=== PATIENT | male | born 1940 | race Caucasian/White ===

== ENCOUNTER → 2018-02-24 12:28 | Outpatient (CLI) | payer MEDICARE, BC, SELFPAY ==
--- NOTE | 2018-02-24 12:31 | DI.ECHO.S_ITS ---
[facility] +---------+ : : [address] : [address] : : : : [id number] : : : : Phone: [phone]+ Echocardiogram Report + + :Name: LOUIS MANCILLA Study Date: 02/24/2018 Height: 69 in : :[facility] Weight: 207 lb: : Gender: Male BSA: 2.1 m2 : :: 1940 Age: 77 yrs : :Reason For Study: MURMUR : : Performed By: Lizbeth Shen : :Referring: BEATRIZ SEWELL : + + Interpretation Summary The ejection fraction is estimated to be 55-60%. The left atrium is severely dilated. There is mild aortic valve sclerosis. Procedure: A two-dimensional transthoracic echocardiogram with color flow and Doppler was performed. The study quality was technically adequate. There is no prior echocardiogram noted for this patient. The heart rate ranged between 64-70 bpm during the study. Left Ventricle: The left ventricle is normal in size, wall thickness, and systolic function without any focal wall motion abnormalities. The ejection fraction is estimated to be 55-60%. Left ventricular wall motion is normal. Right Ventricle: The right ventricle is normal in size and function. Atria: The left atrium is severely dilated. Right atrial size is normal. There is no Doppler evidence for an interatrial shunt. Mitral Valve: There is mild mitral annular calcification. The mitral valve leaflets appear thickened, but open well. There is trace mitral regurgitation. Aortic Valve: The aortic valve is trileaflet. The aortic valve is mildly calcified. There is mild aortic valve sclerosis. There is no hemodynamically significant valvular aortic stenosis. There is trace aortic regurgitation. Tricuspid Valve: The tricuspid valve is normal in structure and function. There is a trace or physiologic amount of tricuspid regurgitation. Pulmonary artery pressures cannot be estimated because of the lack of a measurable TR jet velocity. Pulmonic Valve: The pulmonic valve is normal in structure and function. There is a trace or physiologic amount of pulmonic regurgitation. Great Vessels: The aortic root is normal size. The ascending aorta is normal in size. The aortic arch could not be visualized. The pulmonary artery is normal size. The IVC is of normal diameter and collapses greater than 50% with a sniff. This suggests a low right atrial pressure of 3 mm Hg. Pericardium/ Pleura There is no pericardial effusion. There is no pleural effusion. MMode/2D Measurements & Calculations LVIDd: 4.9 cm LVOT diam: 2.1 cm LVIDs: 2.9 cm Ao root diam: 3.1 cm FS: 40.7 % asc Aorta Diam: 3.2 cm IVSd: 0.92 cm LVPWd: 0.99 cm LV rodas. diameter/BSA (cm/m^2): 2.4 LV sys. diameter/BSA (cm/m^2): 1.4 LA A2 area: 28.7 cm2 RA long axis: 5.5 cm LA A4 area: 29.6 cm2 RA area: 14.4 cm2 LA length (vol): 6.4 cm RA vol: 32.0 ml LA vol: 111.7 ml RA : 15.2 ml/m2 LA vol index: 53.3 ml/m2 IVC diam: 1.6 cm RVD1 (basal): 2.9 cm Doppler Measurements & Calculations Ao V2 max: 153.1 cm/sec LVOT Max Mauricio: 119.8 cm/sec Ao V2 mean: 101.5 cm/sec LV V1 max P.7 mmHg Ao max P.4 mmHg LV V1 VTI: 29.1 cm Ao mean P.6 mmHg DONY(I,D): 3.2 cm2 Ao V2 VTI: 31.5 cm DONY(V,D): 2.7 cm2 sev ratio: 0.92 DONY indexed to BSA (cm^2/m^2): 1.5 MV E max mauricio: 103.7 cm/sec MV A max mauricio: 117.3 cm/sec MV E/A: 0.88 Med Peak E' Mauricio: 8.1 cm/sec E/E' med: 12.7 Lat Peak E' Mauricio: 9.7 cm/sec E/E' lat: 10.7 E/e' average: 11.7 MV dec time: 0.25 sec Reading Physician:02:46 PM
--- NOTE | 2018-02-24 12:31 | DI.RAD.S_ITS ---
PROCEDURE: XR HIP W PEL IF DONE LT 2V INDICATIONS: pain TECHNIQUE: AP pelvis with lateral view(s) of the left hip(s). COMPARISON: [facility], , PELVIS W UNILATERAL HIP LEFT, 02/06/2014, 12:54. [facility], HIP 2V RIGHT, 01/29/2011, 11:56. FINDINGS: Bones: There is a nondisplaced lucency along be superior lateral aspect of the left pubic ramus. Pelvic ring appears intact. No suspicious bony lesions. Moderate bilateral degenerative hip joint space narrowing. Bilateral periarticular osteophytes are present. No erosions are identified. Degenerative changes are present in the lower lumbar spine. Soft tissues: The visualized bowel gas pattern is normal. No suspicious soft tissue calcifications. IMPRESSION: This is a nondisplaced left pubic ramus lucency as above. This is highly suspicious for fracture. Correlation to pain and further evaluation with CT is recommended. Extension to the acetabulum cannot be excluded. Dictated by: Bárbara Gupta M.D. on 02/24/2018 at 12:53 Approved by: Bárbara Gupta M.D. on 02/24/2018 at 12:58
== END ==
PROVIDERS: PCP Family Medicine; Visit Provider Family Medicine
DX: I35.8 Other nonrheumatic aortic valve disorders (principal); M25.552 Pain in left hip; R01.1 Cardiac murmur, unspecified; R60.0 Localized edema
CPT/HCPCS: 73502; 93306

== ENCOUNTER → 2018-02-28 13:09 | Outpatient (CLI) | payer MEDICARE, BC, SELFPAY ==
[2018-02-28 14:09] LABS: BUN Creatinine Ratio 21.4 (6-22); Blood Urea Nitrogen 15 mg/dL (9-20); Estimated Glomerular Filt Rate > 60.0 mL/min (>60)
== END ==
PROVIDERS: PCP Family Medicine; Visit Provider Family Medicine
DX: Z01.812 Encounter for preprocedural laboratory examination (principal)
CPT/HCPCS: 36415; 82565; 84520

== ENCOUNTER → 2018-03-01 08:28 | Outpatient (CLI) | payer MEDICARE, BC, SELFPAY ==
--- NOTE | 2018-03-01 08:54 | DI.CT.S_ITS ---
PROCEDURE: CT PELVIS W CON INDICATIONS: X-ray suspicious for hip fracture TECHNIQUE: After the administration of oral contrast and intravenous contrast, 5 mm thick sections acquired from the iliac crests to the symphysis. 5 mm thick coronal and sagittal reformats were acquired. For radiation dose reduction, the following was used: automated exposure control, adjustment of mA and/or kV according to patient size. COMPARISON: [facility], CT, ABDOMEN/PELVIS WITH CONTRAST, 02/21/2014, 10:24. [facility], CR, XR HIP W PEL IF DONE LT 2V, 02/24/2018, 12:18. FINDINGS: Image quality: Excellent. Peritoneum and bowel: Contrast enhanced bowel loops demonstrate normal wall thickness and caliber. No free fluid or air. Genitourinary: There is a questionable hypodense lesion within the midpole the right kidney which is incompletely characterized on this limited view a cyst is visualized in this region on the comparison CT dated 02/21/14. Dense atheromatous calcifications are present throughout the abdominal aorta and iliac arteries. Bladder wall thickness is normal. Nodes and vessels: No iliac, pelvic, or inguinal adenopathy. Iliac vessels demonstrate normal size and enhancement. Bones: There is a minimally displaced fracture through the left anterior acetabulum (series 2, images 49-57). The femoral head remains articulated with the acetabulum. A minimally displaced fracture is also present to the left inferior obturator ring (series 2, images 70-76). No other fracture or dislocation. The tract of a now removed left femoral nail and bony remodeling of the proximal left femur is redemonstrated. Severe degenerative changes present within the visualized portions of the lumbar spine. Miscellaneous: No inguinal hernias. IMPRESSION: 1. Minimally displaced left acetabular and inferior obturator ring fracture as described above. 2. Probable right renal cyst which is incompletely characterized. 3. Aortic atherosclerosis. Dictated by: Miriam Villavicencio M.D. on 03/01/2018 at 10:50 Approved by: Miriam Villavicencio M.D. on 03/01/2018 at 10:58
== END ==
PROVIDERS: PCP Family Medicine; Visit Provider Family Medicine
DX: S32.492A Other specified fracture of left acetabulum, initial encounter for closed fracture (principal); I70.0 Atherosclerosis of aorta
CPT/HCPCS: 72193; Q9967

== ENCOUNTER 2018-04-10 15:32 | Emergency (ER) | payer MEDICARE, BC, SELFPAY ==
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
[2018-04-10 15:44] VITALS: BP 156/79; PULSE 91; RESP 18; TEMP 36.8; O2SAT 97
--- NOTE | 2018-04-10 15:47 | DI.US.S_ITS ---
PROCEDURE: US PERIPH VENOUS LOW EXTREM LT INDICATIONS: LEFT CALF PAIN TECHNIQUE: Real-time imaging, as well as color and pulse Doppler interrogation, were performed of the lower extremity deep veins from the inguinal ligament to the popliteal fossa. COMPARISON: None. FINDINGS: The deep veins are normally compressible, and free of intraluminal thrombus. Color and pulse Doppler demonstrate normal phasic intraluminal flow. There is normal augmentation response to distal compression maneuver. IMPRESSION: No ultrasound evidence of left lower extremity deep venous thrombosis. Dictated by: Ed Victoria M.D. on 04/10/2018 at 18:39 Approved by: Ed Victoria M.D. on 04/10/2018 at 18:40
[2018-04-10] MEDS: CYCLOBENZAPRINE 10 MG PREPACK 1 BOTTLE MISC (17:32)
[2018-04-10 17:40] VITALS: BP 150/77; PULSE 72; RESP 15; O2SAT 97
== END 2018-04-10 17:41 | disposition home or self-care (01) ==
PROVIDERS: Emergency Provider Nurse Practitioner Family; PCP Family Medicine
DX: M79.662 Pain in left lower leg (principal)
CPT/HCPCS: 93971; 99282; 99284

== ENCOUNTER → 2018-04-12 10:09 | Outpatient (CLI) | payer MEDICARE, BC, SELFPAY ==
--- NOTE | 2018-04-12 | DI.CT.S_ITS ---
PROCEDURE: CT PEL WO CON INDICATIONS: Nondisplaced fracture of anterior wall of left acetabulum TECHNIQUE: Noncontrast 3 mm axial sections acquired through the bony pelvis, with coronal and sagittal reformatting. COMPARISON: [facility], CR, L-SPINE 2-3 VIEWS, 02/15/2014, 9:26. [facility], CT, CT PELVIS W CON, 03/01/2018, 8:51. [facility], CR, XR PELVIS WITH LATERAL HIP LEFT, 03/24/2018, 15:36. FINDINGS: Image quality: Satisfactory. Bones: There are healing fractures with minimal displacement involving the left anterior acetabulum and left inferior pubic ramus, demonstrating interval callus formation. An insufficiency fracture is suspected in the left sacral ala. Degenerative disc disease and facet arthropathy are present in the lower lumbar spine. There is mild to moderate hip and sacroiliac joint degeneration bilaterally. Soft tissues: No soft tissue mass or hematoma. Scattered colonic diverticula are noted in descending colon. No active diverticulitis. IMPRESSION: 1. Healing left anterior acetabular and left inferior pubic ramal fractures. 2. Suspect an insufficiency fracture of the left sacral ala. Dictated by: Keny Reddy M.D. on 04/12/2018 at 11:38 Approved by: Keny Reddy M.D. on 04/12/2018 at 11:49
== END ==
PROVIDERS: PCP Family Medicine; Visit Provider Orthopaedic Surgery
DX: S32.415A Nondisplaced fracture of anterior wall of left acetabulum, initial encounter for closed fracture (principal); M16.0 Bilateral primary osteoarthritis of hip; M51.37 Other intervertebral disc degeneration, lumbosacral region; M47.818 Spondylosis without myelopathy or radiculopathy, sacral and sacrococcygeal region; M47.817 Spondylosis without myelopathy or radiculopathy, lumbosacral region; K57.30 Diverticulosis of large intestine without perforation or abscess without bleeding
CPT/HCPCS: 72192

== ENCOUNTER → 2018-04-26 07:31 | Outpatient (CLI) | payer MEDICARE, BC, SELFPAY ==
[2018-04-26 08:23] LABS: Add Manual Diff / Slide Review NO; Eosinophils Percent Auto 1.6 % (2-4); Hematocrit 38.6 % (41-53); Hemoglobin 12.8 g/dL (13.5-17.5); Lymphocytes Percent Auto 35.2 % (25-40); Mean Corpuscular HGB Conc 33.1 % (30-36); Mean Corpuscular Hemoglobin 30.2 PG (26-34); Mean Corpuscular Volume 91.2 fL (80-100); Monocytes Percent Auto 6.8 % (3-14); Neutrophils Absolute Auto 3200 /uL (3000-5900); Neutrophils Percent Auto 55.4 % (50-75); Platelet Count 263 X10^3/uL (150-400); Red Blood Cell Count 4.23 X10^6/uL (4.5-5.9); White Blood Cell Count 5.7 X10^3/uL (4.5-11.0)
[2018-04-26 08:37] LABS: Creatinine Urine Random 114.8 mg/dL
[2018-04-26 08:41] LABS: Cholesterol 162 mg/dL (140-199); HDL Cholesterol 56 mg/dL (40-60); LDL Cholesterol Calculated 93 mg/dL (<100); Triglycerides 66 mg/dL (35-150)
[2018-04-26 08:51] LABS: Microalbumi Creatinin Ratio Ur 5.2 ug/mg CR (<30); Microalbumin Urine Random < 0.6 mg/dL (0-1.6)
== END ==
PROVIDERS: PCP Family Medicine; Visit Provider Family Medicine
DX: I10 Essential (primary) hypertension (principal)
CPT/HCPCS: 36415; 80061; 82043; 82570; 85025

== ENCOUNTER → 2019-01-12 09:13 | Outpatient (CLI) | payer MEDICARE, BC, SELFPAY ==
--- NOTE | 2019-01-12 09:19 | DI.RAD.S_ITS ---
PROCEDURE: XR TOE RT MIN 2V INDICATIONS: pain TECHNIQUE: 3 views of the right toe(s) acquired. COMPARISON: None. FINDINGS: Bones: No fractures or dislocations. No suspicious bony lesions. Severe first MTP joint degeneration with [id number]-[id number] appearance Soft tissues: No suspicious soft tissue densities. IMPRESSION: Severe first MTP joint degeneration. Dictated by: Ayad No M.D. on 01/12/2019 at 10:16 Approved by: Ayad No M.D. on 01/12/2019 at 10:17
--- NOTE | 2019-01-12 09:19 | DI.RAD.S_ITS ---
PROCEDURE: XR TOE LT MIN 2V INDICATIONS: pain TECHNIQUE: 3 views of the left toe(s) acquired. COMPARISON: None. FINDINGS: Bones: No fractures or dislocations. No suspicious bony lesions. Severe MTP joint degeneration with gimj-xs-apac appearance. There is mild great toe interphalangeal joint disease. Soft tissues: No suspicious soft tissue densities. IMPRESSION: Severe first MTP joint degeneration. Dictated by: Ayad No M.D. on 01/12/2019 at 10:33 Approved by: Ayad No M.D. on 01/12/2019 at 10:33
--- NOTE | 2019-01-12 09:19 | DI.RAD.S_ITS ---
PROCEDURE: XR SHOULDER RT MIN 2V INDICATIONS: pain TECHNIQUE: 3 views of the shoulder were acquired. COMPARISON: None. FINDINGS: Bones: No fractures or dislocations. No suspicious bony lesions. Visualized ribs appear intact. Severe glenohumeral joint space narrowing, subchondral sclerosis and spurring. There is moderate right AC joint degeneration Soft tissues: Subtle calcific densities projecting in the upper glenohumeral joint space cannot exclude small loose bodies IMPRESSION: Severe right shoulder joint degeneration as above. Dictated by: Ayad No M.D. on 01/12/2019 at 10:57 Approved by: Ayad No M.D. on 01/12/2019 at 10:59
--- NOTE | 2019-01-12 09:19 | DI.RAD.S_ITS ---
PROCEDURE: XR SHOULDER LT MIN 2V INDICATIONS: pain TECHNIQUE: 3 views of the shoulder were acquired. COMPARISON: None. FINDINGS: Bones: No fractures or dislocations. No suspicious bony lesions. Visualized ribs appear intact. Severe glenohumeral joint degeneration with subchondral sclerosis and spurring. Heterotopic ossification seen in the region of the coracoclavicular ligament suggesting chronic ligamentous injury. Moderate AC joint degeneration. Soft tissues: No suspicious soft tissue calcifications. IMPRESSION: Severe left shoulder joint degeneration as above. Dictated by: Ayad No M.D. on 01/12/2019 at 10:59 Approved by: Ayad No M.D. on 01/12/2019 at 10:59
== END ==
PROVIDERS: PCP Family Medicine; Visit Provider Family Medicine
DX: M19.011 Primary osteoarthritis, right shoulder (principal); M19.012 Primary osteoarthritis, left shoulder; M19.071 Primary osteoarthritis, right ankle and foot; M19.072 Primary osteoarthritis, left ankle and foot
CPT/HCPCS: 73030; 73660

== ENCOUNTER → 2020-01-12 08:09 | Outpatient (CLI) | payer MEDICARE, BC, SELFPAY ==
[2020-01-12 09:38] LABS: Add Manual Diff / Slide Review NO; Basophils Absolute Auto 0 /uL (0-100); Basophils Percent Auto 0.5 % (0-2); Eosinophils Absolute Auto 100 /uL (0-450); Eosinophils Percent Auto 1.1 % (2-4); Hematocrit 37.1 % (41-53); Hemoglobin 12.4 g/dL (13.5-17.5); Lymphocytes Absolute Auto 2000 /uL (1100-4500); Lymphocytes Percent Auto 33.2 % (25-40); Mean Corpuscular HGB Conc 33.5 % (30-36); Mean Corpuscular Hemoglobin 31.7 PG (26-34); Mean Corpuscular Volume 94.6 fL (80-100); Monocytes Absolute Auto 500 /uL (0-900); Monocytes Percent Auto 9.1 % (3-14); Neutrophils Absolute Auto 3300 /uL (1500-7000); Neutrophils Percent Auto 56.1 % (50-75); Platelet Count 252 X10^3/uL (150-400); Red Blood Cell Count 3.92 X10^6/uL (4.5-5.9); Red Cell Distribution Width 12.9 % (11.6-14.8); White Blood Cell Count 5.9 X10^3/uL (4.5-11.0)
[2020-01-12 10:21] LABS: Albumin 3.9 g/dL (3.5-5.0); Albumin Globulin Ratio 1.6 (1.0-2.8); Alkaline Phosphatase 66 U/L (38-126); Aspartate Aminotransferase 17 IU/L (17-59); BUN Creatinine Ratio 12.5 (6-22); Blood Urea Nitrogen 9 mg/dL (9-20); Calcium 8.8 mg/dL (8.4-10.2); Carbon Dioxide 28 mmol/L (22-32); Chloride 101 mmol/L (98-107); Cholesterol 158 mg/dL (140-199); Estimated Glomerular Filt Rate > 60.0 mL/min (>60); Globulin 2.5 g/dL (1.7-4.1); Glucose 102 mg/dL (80-110); HDL Cholesterol 65 mg/dL (40-60); HEMOLYSIS < 15 (0-50); LDL Cholesterol Calculated 70 mg/dL (<100); Sodium 136 mmol/L (137-145); Total Protein 6.4 g/dL (6.3-8.2); Triglycerides 114 mg/dL (35-150)
[2020-01-12 10:22] LABS: Alanine Aminotransferase < 4 IU/L (<50); Microalbumi Creatinin Ratio Ur 9.9 ug/mg CR (<30); Microalbumin Urine Random < 0.6 mg/dL (0-1.6)
== END ==
PROVIDERS: PCP Family Medicine; Referring Provider Family Medicine; Visit Provider Family Medicine
DX: E78.2 Mixed hyperlipidemia (principal); I10 Essential (primary) hypertension
CPT/HCPCS: 36415; 80053; 80061; 82043; 82570; 85025

== ENCOUNTER → 2021-03-05 13:39 | Outpatient (CLI) | payer MEDICARE, BC, SELFPAY ==
--- NOTE | 2021-03-05 13:41 | DI.RAD.S_ITS ---
PROCEDURE: XR SHOULDER RT MIN 2V INDICATIONS: right shoulder pain TECHNIQUE: 3 views of the shoulder were acquired. COMPARISON: [facility], , XR SHOULDER RT MIN 2V, 01/12/2019, 9:18. FINDINGS: Bones: There are severe degenerative changes of the acromioclavicular joint and glenohumeral joint. There are subacute fractures of the right 4th, 5th, 6th, and 7th ribs. No suspicious bony lesions. Visualized ribs appear intact. Soft tissues: No suspicious soft tissue calcifications. IMPRESSION: 1. Subacute fractures of the right 4th, 5th, 6th, and 7th ribs. 2. Severe degenerative changes of the right glenohumeral joint and right acromioclavicular joint. Dictated by: Juarez Iraheta M.D. on 03/05/2021 at 14:17 Approved by: Juarez Iraheta M.D. on 03/05/2021 at 14:19
--- NOTE | 2021-03-05 13:41 | DI.RAD.S_ITS ---
PROCEDURE: XR KNEE RT 3V INDICATIONS: Right knee pain TECHNIQUE: 3 views of the knee were acquired. COMPARISON: None. FINDINGS: No acute fracture or dislocation. Severe osteoarthritic changes in all 3 compartments of the knee characterized by joint space narrowing with marginal osteophytosis. Meniscal calcifications also present. There is a small suprapatellar knee joint effusion. IMPRESSION: Severe tricompartmental osteoarthritis. Dictated by: Bhupendra Cool M.D. on 03/05/2021 at 15:07 Approved by: Bhupendra Cool M.D. on 03/05/2021 at 15:09
== END ==
PROVIDERS: PCP Family Medicine; Referring Provider Family Medicine; Visit Provider Family Medicine
DX: M25.561 Pain in right knee (principal); M25.511 Pain in right shoulder; S22.41XA Multiple fractures of ribs, right side, initial encounter for closed fracture; M19.011 Primary osteoarthritis, right shoulder
CPT/HCPCS: 73030; 73562

== ENCOUNTER → 2021-05-22 14:30 | Outpatient (CLI) | payer MEDICARE, BC, SELFPAY ==
--- NOTE | 2021-05-22 14:32 | DI.ECHO.S_ITS ---
[facility] +---------+ : : [address] : : : : [id number] : : : : Phone: [phone]+ Echocardiogram Report + + :Name: LOUIS MANCILLA Study Date: 05/22/2021 Height: 70 in : :[facility] ReadingLocation: Weight: 195 lb : : Gender: Male BSA: 2.1 m2 : :: 1940 Age: 80 yrs BP: 163/85 mmHg: :Reason For Study: Hypertension : :Ordering Physician: : :DEBORAH Performed By: Lan Pineda : :Referring: BEATRIZ SEWELL : + + Interpretation Summary The left ventricle is normal in size. The ejection fraction is estimated to be 60-65%. Borderline right ventricular enlargement. The right ventricular systolic function is normal. There is mild to moderate mitral regurgitation. Compared to the prior echo study, there has been an increase in the severity of mitral regurgitation. Mild atherosclerotic plaque(s) in the aortic arch. Procedure: A two-dimensional transthoracic echocardiogram with color flow and Doppler was performed. The study quality was technically adequate. Comparison is made with the echocardiogram of 02/24/2018. The patient was in normal sinus rhythm during the exam. Left Ventricle: There is borderline proximal septal thickening noted. The left ventricle is normal in size. There is no echo evidence for significant left ventricular outflow tract obstruction. There is no thrombus. A false chord is noted (normal variant). The ejection fraction is estimated to be 60- 65%. There are no focal wall motion abnormalities. MV E/A: 0.89 Med Peak E' Mauricio: 5.6 cm/sec E/E' med: 17.0. Right Ventricle: Borderline right ventricular enlargement. The right ventricular systolic function is normal. Atria: The left atrium is moderately dilated. The left atrium has mildly decreased in size since the prior echo exam. The right atrium is mildly dilated. There is no Doppler evidence for an interatrial shunt. Mitral Valve: The mitral valve leaflets appear mildly thickened, but open well. There is mild mitral annular calcification. No significant mitral valve stenosis. There is mild to moderate mitral regurgitation. Compared to the prior echo study, there has been an increase in the severity of mitral regurgitation. Aortic Valve: The aortic valve is trileaflet. The aortic valve opens well. The aortic valve is mildly calcified. There is no aortic valve stenosis. There is trace aortic regurgitation. Tricuspid Valve: The tricuspid valve is normal. There is a trace or physiologic amount of tricuspid regurgitation. Pulmonary artery pressures cannot be estimated because of the lack of a measurable TR jet velocity but the IVC suggests a CVP of around 3 mmHg. Pulmonic Valve: The pulmonic valve is not well seen, but is grossly normal. There is trace pulmonic regurgitation. Great Vessels: The aortic root is normal size. The ascending aorta is normal in size. The aortic arch is normal in size. Mild atherosclerotic plaque(s) in the aortic arch. The IVC is of normal diameter and collapses greater than 50% with a sniff. This suggests a low right atrial pressure of 3 mm Hg. Pericardium/ Pleura There is no pericardial effusion. There is an anterior echo-free space consistent with a fat pad. There is no pleural effusion. MMode/2D Measurements & Calculations LVIDd: 4.5 cm LVOT diam: 1.9 cm LVIDs: 3.0 cm Ao root diam: 3.1 cm FS: 33.3 % asc Aorta Diam: 3.0 cm IVSd: 0.80 cm Ao Arch Diam (Prox Trans): 2.7 cm LVPWd: 1.0 cm LV rodas. diameter/BSA (cm/m^2): 2.2 LV sys. diameter/BSA (cm/m^2): 1.5 LA A2 area: 17.9 cm2 RA long axis: 5.5 cm LA A4 area: 20.4 cm2 LA length (vol): 4.9 cm LA vol: 63.8 ml LA vol index: 30.9 ml/m2 LVLs ap4: 6.4 cm LVLd ap2: 7.4 cm LVLs ap2: 6.4 cm TAPSE_phl: 2.7 cm Doppler Measurements & Calculations Ao V2 max: 149.0 cm/sec LVOT Max Mauricio: 112.0 cm/sec Ao V2 mean: 101.0 cm/sec LV V1 max P.0 mmHg Ao max P.0 mmHg LV V1 VTI: 29.9 cm Ao mean P.0 mmHg DONY(I,D): 2.5 cm2 Ao V2 VTI: 33.8 cm DONY(V,D): 2.1 cm2 sev ratio: 0.88 DONY indexed to BSA (cm^2/m^2): 1.2 MV E max mauricio: 95.6 cm/sec PA V2 max: 91.6 cm/sec MV A max mauricio: 107.0 cm/sec PA V2 mean: 68.3 cm/sec MV E/A: 0.89 PA mean P.0 mmHg Med Peak E' Mauricio: 5.6 cm/sec PA pr(Accel): 39.4 mmHg E/E' med: 17.0 Lat Peak E' Mauricio: 7.5 cm/sec E/E' lat: 12.8 E/e' average: 14.9 MV dec time: 0.32 sec SV(LVOT): 84.8 ml AV VR_phl: 0.75 DONY(VTI)/BSA_phl: 1.2 MV P1/2t-pr_phl: 94.0 msec Reading Physician:11:07 AM
== END ==
PROVIDERS: PCP Family Medicine; Referring Provider Family Medicine; Visit Provider Family Medicine
DX: I34.0 Nonrheumatic mitral (valve) insufficiency (principal); I70.0 Atherosclerosis of aorta; I10 Essential (primary) hypertension; R60.0 Localized edema
CPT/HCPCS: 93306

== ENCOUNTER → 2022-01-23 08:04 | Outpatient (CLI) | payer MEDICARE, BC, SELFPAY ==
[2022-01-23 08:30] LABS: Add Manual Diff / Slide Review NO; Basophils Absolute Auto 0 /uL (0-100); Basophils Percent Auto 0.5 % (0-2); Eosinophils Absolute Auto 100 /uL (0-450); Eosinophils Percent Auto 1.4 % (2-4); Hematocrit 36.3 % (41-53); Hemoglobin 12.4 g/dL (13.5-17.5); Lymphocytes Absolute Auto 1500 /uL (1100-4500); Lymphocytes Percent Auto 26.1 % (25-40); Mean Corpuscular Hemoglobin 30.9 PG (26-34); Mean Corpuscular Volume 90.6 fL (80-100); Monocytes Absolute Auto 500 /uL (0-900); Monocytes Percent Auto 9.3 % (3-14); Neutrophils Absolute Auto 3600 /uL (1500-7000); Neutrophils Percent Auto 62.7 % (50-75); Platelet Count 245 X10^3/uL (150-400); Red Cell Distribution Width 13.7 % (11.6-14.8); White Blood Cell Count 5.7 X10^3/uL (4.5-11.0)
[2022-01-23 08:46] LABS: Creatinine Urine Random 176.6 mg/dL
[2022-01-23 08:49] LABS: Alanine Aminotransferase 5 IU/L (<50); Albumin 3.8 g/dL (3.5-5.0); Albumin Globulin Ratio 1.5 (1.0-2.8); Alkaline Phosphatase 59 U/L (38-126); Aspartate Aminotransferase 18 IU/L (17-59); BUN Creatinine Ratio 27.9 (6-22); Bilirubin Total 0.6 mg/dL (0.2-1.3); Blood Urea Nitrogen 17 mg/dL (9-20); Calcium 8.4 mg/dL (8.4-10.2); Carbon Dioxide 30 mmol/L (22-32); Chloride 101 mmol/L (98-107); Estimated Glomerular Filt Rate > 60 mL/min (>60); Globulin 2.5 g/dL (1.7-4.1); Glucose 107 mg/dL (80-110); HEMOLYSIS < 15 (0-50); Potassium 4.1 mmol/L (3.4-5.1); Sodium 138 mmol/L (137-145); Total Protein 6.3 g/dL (6.3-8.2)
[2022-01-23 08:51] LABS: Microalbumi Creatinin Ratio Ur 6.2 ug/mg CR (<30); Microalbumin Urine Random 1.1 mg/dL (0-1.6)
[2022-01-23 08:58] LABS: NT-proBNP (BNP-Adult 18+) 500 pg/mL (<450)
== END ==
PROVIDERS: PCP Family Medicine; Referring Provider Family Medicine; Visit Provider Family Medicine
DX: I10 Essential (primary) hypertension (principal); R60.0 Localized edema
CPT/HCPCS: 36415; 80053; 82043; 82570; 83880; 85025